=== PATIENT | male | born 1985 | race Caucasian/White ===

== ENCOUNTER 2016-12-09 12:42 | Emergency (ER) | payer OTHER ==
[~2016-12-09] VITALS: Ht 190.5 cm; Wt 104.5 kg
[2016-12-09] MEDS ORDERED: DIVA500T35 PO ×2 (12:51)
[2016-12-09 16:10] VITALS: BP 132/81
== END 2016-12-09 16:12 | disposition home or self-care (01) ==
LOC: EMS 12:48
DX: S02.32XA Fracture of orbital floor, left side, initial encounter for closed fracture (principal); Y04.0XXA Assault by unarmed brawl or fight, initial encounter; Y93.89 Activity, other specified; Y92.89 Other specified places as the place of occurrence of the external cause; Y99.8 Other external cause status
CPT/HCPCS: 70450; 70486; 99284